=== PATIENT | female | born 1985 | race Two or more races ===

== ENCOUNTER 2019-10-17 16:32 | Inpatient (IN) | payer MEDICAID ==
[~2019-10-17] VITALS: Ht 152.4 cm; Wt 100.0 kg
[2019-10-17] MEDS ORDERED: DERMOPLAST 60ML BOTTLE TOP PRN (17:30)
[2019-10-17] MEDS ORDERED: METHYLERGONOVINE MALEATE 0.2 MG/ML AMP IM ONE (17:30)
[2019-10-17] MEDS ORDERED: PHISODERM TOP SOLN 240ML BTL TOP PRN (17:30)
[2019-10-17] MEDS ORDERED: miSOPROStol 50 MCG per PRE-CUT 1/2 TAB SL PRN (17:30)
[2019-10-17] MEDS ORDERED: WITCH HAZEL-GLYCERIN PAD TOP PRN (17:30)
[2019-10-17] MEDS ORDERED: miSOPROStol 50 MCG per PRE-CUT 1/2 TAB PR PRN (17:30)
[2019-10-17] MEDS ORDERED: ONDANSETRON HCL 4 MG/2 ML VIAL IV PRN ×2 (17:45→23:45)
[2019-10-17] MEDS ORDERED: IBUPROFEN 600 MG TAB PO PRN (17:45)
[2019-10-17] MEDS ORDERED: LACT. RINGERS/OXYTOCIN 20UNITS 500 ML IV ONE (17:48)
[2019-10-17 18:19] LABS: Hematocrit 21.9 % (36.0-46.0); Mean Corpuscular Hemoglobin 20.9 pg (28.0-32.0); Mean Corpuscular Hgb Conc. 27.9 g/dL (32.0-36.0); Platelet Count (auto) 249 10^3/uL (140-450); Red Blood Cells 2.91 10^6/uL (4.0-5.20)
[2019-10-17] MEDS ORDERED: LORazepam 2MG/ML-1ML VIAL ONE (18:20)
[2019-10-17] MEDS ORDERED: InsuLIN REG 1unit/0.01ml Soln (100units/ml) ONE (18:23)
--- NOTE | 2019-10-17 18:23 | NUR ---
RESP NOTE: CODE BLUE. PT BAGGED VIA AMBU AND 100% FIO2. INTUBATED WITH AN 8.0 ETT SECURED ORIGINALLY AT 24 CM AT TEETH BUT WAS RETRACTED TO 20 CM PER XRAY. PT WAS TRANSFERRED AT 1948 TO OR AND OR TEAM HAS ASSUMED CARE.
[2019-10-17 18:42] LABS: Hemoglobin 6.1 g/dL (12.2-16.2); Red Cell Distribution Width 20.5 % (11.8-14.3); White Blood Cell 38.4 10^3/uL (4.4-10.8)
[2019-10-17 18:45] LABS: Alcohol, Urine < 3.0 mg/dL (0-10); Amphetamine Screen, Urine POSITIVE (NEGATIVE); Barbiturate Scree,Urine NEGATIVE (NEGATIVE); Benzodiazephine Screen, Urine NEGATIVE (NEGATIVE); Cannabinoid Screen, Urine POSITIVE (NEGATIVE); Cocaine Screen, Urine NEGATIVE (NEGATIVE); Opiate Scree,Urine NEGATIVE (NEGATIVE); Phencyclidine Screen, Urine NEGATIVE (NEGATIVE)
[2019-10-17 18:46] LABS: Albumin 1.8 g/dL (3.4-5.0); Bilirubin, Total 1.2 mg/dL (0.2-1.0); Calcium 7.1 mg/dL (8.5-10.1); INR 1.03 (0.9-1.15); Potassium 3.6 mmol/L (3.5-5.1); Total Protein 4.8 g/dL (6.4-8.2); Uric Acid 5.1 mg/dL (2.6-6.0)
[2019-10-17 18:49] LABS: BUN/Creatinine Ratio 10.4
[2019-10-17 18:57] LABS: Basophils % (manual) 0 (0.0-2.0); Blast Cells 0; Eosinophils % (manual) 0 (0-7); Metamyelocytes % 0; Promyelocytes % 0; Reactive Lymphocytes 0
[2019-10-17 18:59] LABS: Urine Bacteria NONE SEEN /hpf (None Seen); Urine Blood 1+ /uL (Negative); Urine Hyaline Cast FEW /lpf (0 - 2); Urine Mucus FEW (None Seen); Urine Specific Gravity 1.023 (1.001-1.035); Urine WBC 3 /hpf (0 - 5)
[2019-10-17] MEDS ORDERED: SUCCINYLCHOLINE CHLORIDE 20 MG/ML 10ML VIAL IV ONE (19:21)
[2019-10-17] MEDS ORDERED: ROCURONIUM 10MG/ML 10ML VIAL IV ONE ×2 (19:21→19:23)
[2019-10-17] MEDS ORDERED: fentaNYL CITRATE 100 MCG/2 ML VL ONE (19:22)
[2019-10-17] MEDS ORDERED: HYDROmorphone HCL 2 MG/ML VL ONE ×2 (19:22→21:13)
[2019-10-17] MEDS ORDERED: SODIUM CHLORIDE LOCK 10 ML ONE (19:23)
[2019-10-17] MEDS ORDERED: MIDAZOLAM HCL 1MG/1ML-2 ML VIAL ONE ×2 (19:23→21:10)
[2019-10-17] MEDS ORDERED: fentaNYL CITRATE 5 ML ONE ×2 (19:23→21:10)
[2019-10-17] MEDS ORDERED: KETAMINE HCL 10 ML ONE (19:23)
[2019-10-17] MEDS ORDERED: InsuLIN REG 1unit/0.01ml Soln (100units/ml) IV ONE ×2 (19:40→20:00)
[2019-10-17] MEDS ORDERED: NOREPINEPHRINE 8 MG/250ML KIT 250 ML IV ONE (19:45)
[2019-10-17] MEDS: InsuLIN REG 1unit/0.01ml Soln (100units/ml) ONE ×2 (19:51→19:58)
[2019-10-17] MEDS ORDERED: ceFAZolin 1GM VL ONE (19:52)
[2019-10-17] MEDS ORDERED: oxyTOCIN 10 UNIT/ML 10ML VIAL ONE (20:07)
[2019-10-17 20:14] LABS: Alanine Aminotransferase 230 U/L (13-56); Albumin 1.3 g/dL (3.4-5.0); Anion Gap 24 (5-15); Aspartate Aminotransferase 396 U/L (15-37); BUN/Creatinine Ratio 6.8; Blood Urea Nitrogen 8 mg/dL (7-18); Calcium 6.9 mg/dL (8.5-10.1); Chloride 108 mmol/L (98-107); GFR African American 67 mL/min; GFR Non-African American 55 mL/min; Glucose 328 mg/dL (74-106); Potassium 4.3 mmol/L (3.5-5.1); Sodium 138 mmol/L (136-145)
[2019-10-17 20:16] LABS: Alkaline Phosphatase 269 U/L (45-117); Bilirubin, Total 1.1 mg/dL (0.2-1.0); Total Protein 4.2 g/dL (6.4-8.2)
--- NOTE | 2019-10-17 20:18 | NUR ---
Received call from lab for critical lab, CO2 = 6
[2019-10-17 20:19] LABS: Carbon Dioxide 6 mmol/L (21-32)
--- NOTE | 2019-10-17 20:20 | NUR ---
Critical lab value relayed to Dr Olivera at this time, Dr Olivera verbalizes understanding, no orders received
[2019-10-17] MEDS ORDERED: miSOPROStol 100 mcg TAB ONE (20:22)
[2019-10-17] MEDS ORDERED: SODIUM BICARBONATE 8.4 % INJ 50ML VIAL IV ONE ×5 (20:23→23:45)
[2019-10-17] MEDS: CALCIUM CHLOR(10%) 100MG/ML 10ML SYRINGE IV ONE ×2 (20:25→22:57)
[2019-10-17 20:51] LABS: Hemoglobin 10.3 g/dL (12.2-16.2); Red Blood Cells 4.08 10^6/uL (4.0-5.20)
[2019-10-17 20:52] LABS: Hematocrit 36.9 % (36.0-46.0); Mean Corpuscular Hemoglobin 25.3 pg (28.0-32.0); Mean Corpuscular Volume 90.3 fL (80.0-100.0); Platelet Count (auto) 175 10^3/uL (140-450)
[2019-10-17] MEDS ORDERED: CARBOPROST TROMETHAMINE 250 MCG/1ML VIAL IM ONE (20:52)
[2019-10-17 20:54] LABS: White Blood Cell 53.3 10^3/uL (4.4-10.8)
--- NOTE | 2019-10-17 20:54 | NUR ---
Received call from Morenita in lab with critical WBC of 53.3. She also states that H&H are now 10.3 and 36.9
[2019-10-17 20:55] LABS: Basophils % (manual) 0 (0.0-2.0); Blast Cells 0; Promyelocytes % 0; Reactive Lymphocytes 0
--- NOTE | 2019-10-17 20:55 | NUR ---
Lab values given to OR nurse
[2019-10-17] MEDS ORDERED: KETOROLAC TROMETH 30 MG/ML 1ML VIAL ONE (21:06)
[2019-10-17] MEDS ORDERED: ONDANSETRON HCL 4 MG/2 ML VIAL ONE (21:06)
--- NOTE | 2019-10-17 21:10 | NUR ---
ABG DRAWN, CRITICAL RESULTS REPORTED TO DR. WAITE BY RT YO, AWARE SAMPLE IS MIXED VENOUS. NO NEW RESPIRATORY ORDERS GIVEN AT THIS TIME.
[2019-10-17] MEDS ORDERED: SODIUM BICARBONATE 50ML VIAL 150 ML in SOD CHL 0.45% 1,000 ML IV SCH (21:15)
[2019-10-17] MEDS ORDERED: ALBUMIN 5% 250 ML IV ONE ×2 (21:19→21:30)
[2019-10-17] MEDS ORDERED: EPINEPHrine HCL 1 MG/10 ML SYRG IV ONE (21:20)
[2019-10-17] MEDS ORDERED: OXYTOCIN 10UNIT/ML 1ML VIAL IV ONE (21:22)
--- NOTE | 2019-10-17 22:11 | NUR ---
RECEIVED PATIENT FROM OR ACCOMPANIED BY DR. CLAUDIO,DR. WAITE AND DR. LOMBARDO NOTED THAT BP LOW TO NO READING - ORDER RECEIVED TO GIVE 1 MORE BLOOD Addendum: 10/18/19 at 0818 by Iliana Garner RN ASSESSMENT DONE -REFER INTERVENTIONS
[2019-10-17 22:12] VITALS: BP 108/66
[2019-10-17 22:15] VITALS: BP 104/69
--- NOTE | 2019-10-17 22:30 | NUR ---
HOSPITALIST HERE TO INSERT LINE AWAITING PT PTT RESULTS
[2019-10-17 22:37] VITALS: BP 48/23
[2019-10-17] MEDS ORDERED: VASOPRESSIN 20 UNIT/ML ONE ×2 (22:39→23:11)
[2019-10-17] MEDS: VASOPRESSIN 50 UNITS in D5W 5% 247.5 ML IV SCH (22:45)
[2019-10-17] MEDS ORDERED: SODIUM BICARBONATE 8.4% INJ 50ML SYRINGE ONE (22:54)
[2019-10-17 23:00] VITALS: BP 108/66
[2019-10-17] MEDS: LACT. RINGERS/OXYTOCIN 20UNITS 1,000 ML IV SCH (23:00)
--- NOTE | 2019-10-17 23:00 | NUR ---
HOSPITALIST INFORMED OF PT PTT RESULTS HE SAID HE WILL NOT PUT IN CENTRAL LINE BECAUSE PATIENT IS IN DIC
--- NOTE | 2019-10-17 23:00 | NUR ---
SKIN LEFT EYE ECCHYMOSIS AND SWELLING NOTED - ACCORDING TO DR. CLAUDIO IT WAS THERE ALREADY WHEN PATIENT CAME IN BOTH LOWER LIMBS MOTTLED ALL LIMBS SWOLLEN LOWER MIDDLE ABDOMEN - INCISION SITE DRESSING WITH SOME BLOOD, BUT NO ACTIVE BLEEDING THERE NOTED OR STAFF PLACED ABDOMINAL BINDER VAGINA SWOLLEN - PADS CHANGED - 1/2 SOAKED WITH BLOOD
[2019-10-17 23:01] VITALS: BP 105/48
[2019-10-17 23:06] LABS: INR 1.73 (0.9-1.15)
[2019-10-17 23:10] LABS: Partial Thromboplastin Time > 139.0 sec (23.0-31.2)
[2019-10-17 23:10] LABS: Band Neutrophils % (manual) 12; Lymphocytes % (manual) 11 (10.0-50.0); Monocytes % (manual) 2 (0-12); Myelocytes % 1
[2019-10-17] MEDS ORDERED: DEXTROSE (50%) 50ML SYRG IV PRN (23:15)
[2019-10-17 23:19] LABS: Band Neutrophils % (manual) 5; Eosinophils % (manual) 1 (0-7); Lymphocytes % (manual) 23 (10.0-50.0); Metamyelocytes % 2; Monocytes % (manual) 3 (0-12)
[2019-10-17 23:20] LABS: Myelocytes % 1
[2019-10-17 23:22] LABS: Hematocrit 24.8 % (36.0-46.0)
[2019-10-17 23:24] LABS: Hemoglobin 7.9 g/dL (12.2-16.2)
[2019-10-17] MEDS: SODIUM BICARBONATE 50ML VIAL 150 ML in SOD CHL 0.45% 1,000 ML IV SCH (23:26)
[2019-10-17] MEDS ORDERED: VANCOMYCIN PER PHARMACY 0 MG IV SCH (23:30)
--- NOTE | 2019-10-17 23:30 | NUR ---
GREGORY GARCIA INGA WILL CONTACT DIRECTOR OF BUSINESS CONTINUITY DEPT TO TRY TO GET HOLD OF FAMILY MEMBER
[2019-10-17] MEDS ORDERED: SODIUM CHLORIDE 0.9% 1,000 ML IV SCH (23:31)
[2019-10-17] MEDS ORDERED: ceFAZolin 1GM/50ML 50 ML IV SCH (23:45)
[2019-10-17] MEDS ORDERED: VANCOMYCIN 1GM/250ML 250 ML IV ONE (23:45)
[2019-10-17] MEDS ORDERED: ACETAMINOPHEN IV 1000 MG/100ML (10MG/ML) IV PRN (23:45)
--- NOTE | 2019-10-17 23:45 | NUR ---
TALKED TO HOSPITALIST RE: NO BP START BERTIN AND GIVE 1 MORE AMP OF SODIUM BICARBONATE
[2019-10-17 23:47] LABS: Lactic Acid w/Reflex 13.2 mmol/L (0.4-2.0)
[2019-10-17] MEDS ORDERED: PHENYLEPHRINE IV 250 ML IV ONE (23:48)
[2019-10-18] VITALS (85 sets, daily range): BP systolic 0–177; BP diastolic 37–108
--- NOTE | 2019-10-18 00:05 | NUR ---
This RN calls the following contact numbers to notify family/friend of PT's presence in hospital and to request they come to hospital. Phone recording states that both numbers have been changed, disconnected or are no longer in service: and .
[2019-10-18] MEDS: PHENYLEPHRINE IV 250 ML IV SCH ×8 (00:07→22:45)
[2019-10-18] MEDS: VASOPRESSIN 50 UNITS in D5W 5% 247.5 ML IV SCH ×6 (00:21→08:03)
--- NOTE | 2019-10-18 00:30 | NUR ---
PAGED HOSPITALIST FOR NO BP
[2019-10-18] MEDS ORDERED: VASOPRESSIN 20 UNIT/ML ONE ×6 (00:34→03:25)
[2019-10-18] MEDS: NOREPINEPHRINE 8 MG/250ML KIT 250 ML IV SCH ×3 (00:48→09:59)
--- NOTE | 2019-10-18 00:49 | NUR ---
HOSPITALIST CALLED BACK NOTED OF NO BP AND H&H RESULTS ORDERED 3 UNITS OF PC TO GIVE
--- NOTE | 2019-10-18 01:00 | NUR ---
NO BP READING MAX ON LEVOPHED, BERTIN AND VASOPRESSIN DRIP WILL HUNG BLOOD
[2019-10-18] MEDS: LACT. RINGERS/OXYTOCIN 20UNITS 1,000 ML IV SCH ×4 (01:28→21:28)
[2019-10-18] MEDS: SODIUM BICARBONATE 50ML VIAL 150 ML in SOD CHL 0.45% 1,000 ML IV SCH (02:26)
--- NOTE | 2019-10-18 02:59 | NUR ---
ATTEMPTING TO REACH NEXT OF KIN, NOTIFIED THEY WILL CALL BE BACK AFTER THEY DO SOME RESEARCH
--- NOTE | 2019-10-18 03:24 | NUR ---
CAMERON REY AT BEDSIDE ORDERS RECEIVED
[2019-10-18] MEDS ORDERED: SODIUM BICARBONATE 8.4 % INJ 50ML VIAL IV ONE ×4 (03:27→23:30)
--- NOTE | 2019-10-18 03:35 | NUR ---
[place] [id number] [facility] [id number] IS THE WELFARE OFFICE, THE SUPERVISOR SULFURIC ACID PLANT HAS NO ENCOUNTERS WITH PATIENT AND ARE UNABLE TO LOCATE FAMILY. LDRP AND ICU NOTIFIED
[2019-10-18] MEDS: PIPERACILLIN-TAZOB 3.375GM 100 ML IV SCH ×5 (03:47→23:51)
[2019-10-18 04:52] LABS: Potassium 4.2 mmol/L (3.5-5.1)
[2019-10-18 05:01] LABS: Albumin 1.2 g/dL (3.4-5.0); BUN/Creatinine Ratio 6.8; Bilirubin, Total 1.8 mg/dL (0.2-1.0); Total Protein 2.7 g/dL (6.4-8.2)
[2019-10-18 05:08] LABS: Calcium 5.4 mg/dL (8.5-10.1)
[2019-10-18] MEDS: DEXTROSE (50%) 50ML SYRG IV PRN (05:27)
--- NOTE | 2019-10-18 05:29 | NUR ---
BLOOD SUGAR LOW BLOOD DRAW BLOOD SUGAR = 30 ACCUCHECK = 22 IV D50 GIVEN
--- NOTE | 2019-10-18 05:30 | NUR ---
FOLLOWED UP CBC AND PTPTT RESULTS FROM LAB SHE WILL CHECK ON IT
--- NOTE | 2019-10-18 05:59 | NUR ---
REPEAT BLOOD SUGAR 89
[2019-10-18] MEDS ORDERED: InsuLIN REG 1unit/0.01ml Soln (100units/ml) SC SCH ×2 (06:00)
[2019-10-18] MEDS ORDERED: ACCU-CHEK COMFORT CURVE STRIP VI SCH ×2 (06:00)
--- NOTE | 2019-10-18 06:00 | NUR ---
UNABLE TO GET BP FROM ARM AND LEG HOSPITALIST NOTED
[2019-10-18] MEDS ORDERED: CALCIUM GLUC 4.65meq/50ml D5AE 50 ML IV ONE ×5 (06:15→18:15)
[2019-10-18] MEDS ORDERED: ALBUMIN 5% 250 ML IV ONE (06:30)
[2019-10-18] MEDS: SODIUM BICARBONATE 50ML VIAL 150 ML in D5W 5% 1,000 ML IV SCH ×4 (06:30→23:51)
[2019-10-18] MEDS: EPINEPHrine HCL 250 ML IV SCH ×2 (06:36→20:39)
--- NOTE | 2019-10-18 06:45 | NUR ---
CALLED AND INFORMED DR. CLAUDIO ABOUT THE ABDOMINAL GETTING BIGGER INFORMED OF PARAMETERS HE SAID THEY LEFT 5 PACKS OF PADS INSIDE BECAUSE SHE IS STILL BLEEDING ORDERED TO INFORM DR. YATES
--- NOTE | 2019-10-18 06:50 | NUR ---
CALLED LAB AGAIN TO FOLLOW UP CBC AND PT PTT IT SEEMS THAT ITS NOT DRAWN SHE WILL CONTACT THE SENIOR FRONT END ENGINEER
--- NOTE | 2019-10-18 07:00 | NUR ---
DR. CLAUDIO AT BEDSIDE
--- NOTE | 2019-10-18 07:00 | NUR ---
Binta CLAUDIO AT BEDSIDE AND UPDATED ON PATIENT STATUS. CANDIDO OILFIELD PLANT AND FIELD OPERATOR ALSO AT BEDSIDE. PER MDS ADMINISTER 4PRBC, 2FFP, AND 2 10 PACKS OF PLATELETS. ALL ORDERS NOTED IN CHART. PER CANDIDO PATIENT TO GET MD CRYSTAL WILL PLACE ORDER.
--- NOTE | 2019-10-18 07:00 | NUR ---
REPORT RECEIVED FROM DRAPERY SEAMSTRESS NURSE. PATIENT RESTING IN BED INTUBATED WITH NO SEDATIONS. PATIENT IS NONRESPONSIVE TO PAINFUL STIMULI, NO COUGH OR GAG. RESPIRATIONS EVEN AND UNLABORED. PATIENT CURRENTLY HAS NO BLOOD PRESSURE, PER DRAPERY SEAMSTRESS NURSE PATIENT HAS NOT HAD A BLOOD PRESSURE MOST OF THE NIGHT.BED IN LOW POSITION. WILL CONTINUE TO MONITOR.
[2019-10-18 07:22] LABS: Hematocrit 14.9 % (36.0-46.0); Mean Corpuscular Hemoglobin 29.7 pg (28.0-32.0); Mean Corpuscular Hgb Conc. 30.9 g/dL (32.0-36.0); Mean Corpuscular Volume 96.2 fL (80.0-100.0); Red Blood Cells 1.54 10^6/uL (4.0-5.20); Red Cell Distribution Width 15.5 % (11.8-14.3); White Blood Cell 21.9 10^3/uL (4.4-10.8)
[2019-10-18 07:33] LABS: Hemoglobin 4.6 g/dL (12.2-16.2)
[2019-10-18 07:35] LABS: Platelet Count (auto) 30 10^3/uL (140-450)
[2019-10-18 07:36] LABS: Basophils % (manual) 0 (0.0-2.0); Blast Cells 0; Eosinophils % (manual) 0 (0-7); Promyelocytes % 0; Reactive Lymphocytes 0
--- NOTE | 2019-10-18 07:40 | NUR ---
DR RUSSELL AT BEDSIDE TO PLACE CENTRAL LINE AND ARTERIAL LINE. LINES BOTH PLACED TO RIGHT FEMORAL.
[2019-10-18 07:54] LABS: Band Neutrophils % (manual) 5; Lymphocytes % (manual) 20 (10.0-50.0); Metamyelocytes % 2; Monocytes % (manual) 10 (0-12); Myelocytes % 1
[2019-10-18] MEDS ORDERED: COAGULATION FACTOR VIIA (RECOM 5 MG INJ IV ONE ×2 (08:00→16:00)
[2019-10-18 08:21] LABS: INR 2.73 (0.9-1.15)
[2019-10-18 08:36] LABS: Partial Thromboplastin Time 104.5 sec (23.0-31.2)
[2019-10-18] MEDS ORDERED: VANCOMYCIN 1GM/250ML 250 ML IV ONE (09:00)
[2019-10-18] MEDS: fentaNYL Drip 2500mCg/250mlNS 250 ML IV SCH (09:09)
[2019-10-18] MEDS ORDERED: PANTOPRAZOLE 40 MG/10 ML VIAL INJ IV ONE (09:15)
--- NOTE | 2019-10-18 09:30 | NUR ---
NGT PLACED NGT TO RIGHT NARE AFTER 2 ATTEMPTS. MINIMAL BLEEDING NOTED TO LEFT NARE.
--- NOTE | 2019-10-18 09:30 | NUR ---
Respiratory note: REPEAT ABG DONE, AND REPORTED TO . VENT CHANGES, RR FROM 18 TO 24. REPEAT ABG IN 1HOUR.
--- NOTE | 2019-10-18 09:30 | NUR ---
SPOKE TO DR OLSEN WHO REVIEWED RECENT ABG WITH RESPIRATORY THERAPIST. PER MD ADMINISTER 2 AMPS OF SODIUM BICARBONATE IVP X1.
--- NOTE | 2019-10-18 10:02 | NUR ---
SPOKE TO DR BOYLE AND UPDATED ON PATIENTS CURRENT STATUS, MEDICATIONS, VITALS, AND LAB VALUES. PER MD CONSULT NEPHROLOGY AND PULMONOLOGY. ALL ORDERS NOTED IN CHART.
[2019-10-18] MEDS: ACCU-CHEK COMFORT CURVE STRIP VI SCH ×13 (10:03→23:30)
--- NOTE | 2019-10-18 10:58 | NUR ---
DR BOYLE AT BEDSIDE TO ASSESS PATIENT AND DISCUSS PLAN OF CARE. ALL ORDERS NOTED IN CHART.
--- NOTE | 2019-10-18 11:14 | NUR ---
SPOKE TO IVY CRISOSTOMO (PATIENTS SIGNIFICANT OTHER AND FATHER OF ) [phone]. PER IVY HE WILL FIND PATIENTS MOTHERS NUMBER OR TALK TO PEOPLE THAT CAN GET IN CONTACT WITH HER.
--- NOTE | 2019-10-18 11:30 | NUR ---
SPOKE TO DR YATES AND UPDATED ON PATIENT STATUS. DISCUSSED PLAN OF CARE WITH MD. PER MD WILL TAKE PATIENT TO SURGERY WHEN DR CLAUDIO FEELS PATIENT IS STABLE.
--- NOTE | 2019-10-18 11:33 | NUR ---
assessment Patient is a 33 year old female who is in ICU on a vent. Per DEVAN Rowe patient was brought in by EMS and delivered in ambulance. Per Soledad baby is doing well, but patient had to be intubated and hysterectomy done. I have a ss consult no next of kin. I have been unable to find next of kin. I have messaged people on her possible Facebook page. waiting for a call back now. Addendum: 10/18/19 at 1136 by Sara Nobles Amended: Links added.
--- NOTE | 2019-10-18 11:37 | NUR ---
SPOKE TO DR BURGOS AND REVIEWED RECENT ABG AND PATIENT MEDICAL HX AND REASON FOR ADMISSION. PER MD ADMINISTER 3 AMPS SODIUM BICARBONATE IVP X1 NOW. VENTILATOR CHANGES TV 550 AND INCREASE RATE TO 26. ABG 1 HOUR AFTER CHANGES MADE AND BICARB GIVEN. ALL ORDERS NOTED IN CHART AND INFORMED RESPIRATORY THERAPIST.
[2019-10-18] MEDS: PANTOPRAZOLE 40 MG/10 ML VIAL INJ IV SCH (12:16)
--- NOTE | 2019-10-18 12:30 | NUR ---
Respiratory note: VENT CHANGES MADE PER , RR 26, VT TO 550. REPEAT ABG IN 1 HOUR. TITRATED FIO2 TO 40%
[2019-10-18] MEDS ORDERED: phytonadione 10 MG in SODIUM CHL 0.9% 50 ML IV ONE (12:45)
--- NOTE | 2019-10-18 12:45 | NUR ---
DR CONTRERAS AT BEDSIDE TO ASSESS PATIENT AND DISCUSS PLAN OF CARE. ALL ORDERS NOTED IN CHART.
--- NOTE | 2019-10-18 13:45 | NUR ---
US SENT PER DR BEN LEMUS.
--- NOTE | 2019-10-18 14:10 | NUR ---
Respiratory note: TITRATED FIO2 TO 30%, DEVAN PARRA INFORMED.
--- NOTE | 2019-10-18 14:45 | NUR ---
DR GARCIAS AT BEDSIDE TO ASSESS PATIENT AND DISCUSS PLAN OF CARE. ALL ORDERS NOTED IN CHART.
[2019-10-18] MEDS ORDERED: DESMOPRESSIN INJECTION 20 MCG in SODIUM CHL 0.9% 50 ML IV ONE (15:15)
[2019-10-18 15:24] LABS: Protein, Urine 466.2 mg/dL (0.0-11.9)
[2019-10-18 16:04] LABS: Creatinine, Urine < 5.0 mg/dL (30.0-125.0)
[2019-10-18 16:12] LABS: Hematocrit 15.1 % (36.0-46.0); Mean Corpuscular Hemoglobin 29.8 pg (28.0-32.0); Mean Corpuscular Hgb Conc. 32.4 g/dL (32.0-36.0); Platelet Count (auto) 161 10^3/uL (140-450); Red Blood Cells 1.65 10^6/uL (4.0-5.20); Red Cell Distribution Width 15.3 % (11.8-14.3); White Blood Cell 19.2 10^3/uL (4.4-10.8)
--- NOTE | 2019-10-18 16:12 | NUR ---
SPOKE TO PATIENTS MOTHER VARINDER COLUNGA [phone]. WILL COME IN TO SEE PATIENT. MOTHER WAS UPDATED ON CRITICAL STATE OF PATIENT. MOTHER HAS BEEN APPROVED BY HAT AND CAP PARTS CUTTER HAND TO COME AND SEE PATIENT.
--- NOTE | 2019-10-18 16:15 | NUR ---
WOUND CARE NOTE: Wound care in to see patient per wound care request regarding low Mathieu score of 8 and intubation status, putting patient to high risk for skin breakdown. 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 Patient is resting in ICU bed in Rm. 104. Patient is intubated, sedated and mechanically ventilated. Noted patient's BLE has severely mottled purple skin. She's in multi pressor, edematous with L periorbital bruise. Unable to turn patient as per RN's recommendation as patient is "too unstable" to turn. Per report's patient has no wound other than abdominal incision, ecchymosis to perineum s/p child brith. Wound care will try to do skin assessment when patient is stable to turn. RECOMMENDATION: Nursing to continue with BID/PRN cleaning and application of Barrier cream to sacral, buttocks as preventative, frequent turning and repositioning schedule as condition permits, redistribute pressure points with pillows, elevate heels on pillows,continue monitoring by wound care while patient is intubated. Addendum: 10/18/19 at 1641 by Ileana Goldman RN Amended: Links added.
[2019-10-18 16:25] LABS: Albumin 1.3 g/dL (3.4-5.0); Magnesium 1.7 mg/dL (1.6-2.6); Potassium 4.1 mmol/L (3.5-5.1); Uric Acid 9.8 mg/dL (2.6-6.0)
[2019-10-18 16:32] LABS: Basophils % (manual) 0 (0.0-2.0); Blast Cells 0; Eosinophils % (manual) 0 (0-7); Hemoglobin 4.9 g/dL (12.2-16.2); Promyelocytes % 0; Reactive Lymphocytes 0
--- NOTE | 2019-10-18 16:35 | NUR ---
PAGED DR BOYLE FOR HGB 4.9 AWAITING CALL BACK.
--- NOTE | 2019-10-18 16:39 | NUR ---
SPOKE TO DR BOYLE FOR PATIENTS HGB 4.9, PER MD ADMINISTER 4 UNITS PRBC. ALL ORDERS NOTED IN CHART.
[2019-10-18 16:41] LABS: Bilirubin, Total 1.7 mg/dL (0.2-1.0); Total Protein 2.8 g/dL (6.4-8.2)
[2019-10-18 16:49] LABS: Calcium 5.3 mg/dL (8.5-10.1)
[2019-10-18] MEDS ORDERED: VANCOMYCIN 1GM/250ML 250 ML IV SCH (17:00)
--- NOTE | 2019-10-18 17:08 | NUR ---
PAGED DR CONTRERAS FOR PATIENTS CRITICAL CALCIUM LEVEL 5.3. [address] CONTRERAS AND ORDERED 2 GM CALCIUM GLUCONATE.. ALL ORDERS NOTED IN CHART.
[2019-10-18] MEDS: VASOPRESSIN 100 UNITS in D5W 5% 495 ML IV SCH ×2 (17:14→18:05)
[2019-10-18 17:22] LABS: INR 1.89 (0.9-1.15); Partial Thromboplastin Time 57.8 sec (23.0-31.2)
[2019-10-18 19:11] LABS: Band Neutrophils % (manual) 19; Lymphocytes % (manual) 24 (10.0-50.0); Metamyelocytes % 2; Monocytes % (manual) 5 (0-12); Myelocytes % 2
--- NOTE | 2019-10-18 19:30 | NUR ---
DR CLAUDIO PAGED PAGED DR CLAUDIO PER MD REQUEST TO DISCUSS FIBRINOGEN LEVEL. UPDATED MD REGARDING LEVEL. ORDERS RECEIVED TO TRANSFUSE TWO FFP'S. ORDER PLACED AND BLOOD BANK UPDATED TO THAW UNITS AVAILABLE.
[2019-10-18] MEDS ORDERED: AMINOCAPROIC ACID IV SCH (20:00)
[2019-10-18] MEDS ORDERED: AMINOCAPROIC ACID 5 GM in SODIUM CHL 0.9% 250 ML IV ONE ×2 (20:00→20:15)
--- NOTE | 2019-10-18 20:00 | NUR ---
OPEN ASSUMED CARE OF FEMALE PT ORALLY INTUBATED. PT ON NO SEDATION. NON RESPONSIVE. COUGH AND GAG ABSENT. PUPILS 3 MM ELZA AND SLUGGISHLY REACTIVE. PT DOES NOT BREATH ABOVE THE VENT. SINUS TACH ON BRASS BOBBIN WINDER. PT WITH MULTIPLE PRESSORS INFUSING INTO R. FEM TLC (SEE IV SPREADSHEET). R. FEM ART LINE IN PLACE PROVIDING BP READINGS. GOOD WAVE FORM OBSERVED. PT EDEMATOUS THROUGHOUT. NGT TO L. NARE TO LCS DRAINING SMALL AMOUNT OF STRAW COLORED FLUID. PLACEMENT VERIFIED. PT WITH RIGID DISTENDED ABDOMEN. ABDOMINAL BINDER IN PLACE OVER SURGICAL INCISION TO LOWER ABDOMEN. DRESSING DRY/INTACT. PT ON BLEEDING PRECAUTION. DRESSING NOT TO BE CHANGED. PT RECEIVING BLOOD PRODUCT VIA RAPID INFUSION FOR POST HEMORRHAGE. SEE TRANSFUSION RECORD. PT ON NA+ BICARB GTT 3 AMPS IN D5 AT 200 ML/HR. WHITE TO GRAVITY DRAINING SCANT PINK TINGED URINE. MOTTLING OBSERVED TO ELZA LOWER EXTREMITIES. PEDAL PULSES UNABLE TO BE PALPATED. BED IN LOWEST LOCKED POSITION SIDE RAILS UP X 2. HOB ELEVATED 35 DEGREES. NO INDICATION OF PAIN OBSERVED. UNABLE TO TURN PT AT THIS TIME. WILL RESUME TURN SCHEDULE PT CONDITION PERMITS.
--- NOTE | 2019-10-18 20:05 | NUR ---
FAMILY CONTACT PT'S MOTHER CALLED UNIT FOR UPDATE ON PT CONDITION AND TO INQUIRE ABOUT VISITING PT. UPDATE PROVIDED. ALL QUESTIONS AND CONCERNS ADDRESSED.
[2019-10-18 20:08] LABS: BUN/Creatinine Ratio 5.6
--- NOTE | 2019-10-18 21:15 | NUR ---
DR CLAUDIO PAGED PAGED DR CLAUDIO TO INQUIRE IF PT NEEDS TO BE CONSENTED FOR PLANNED INTRAPERITONEAL PACKING REMOVAL IN AM. NO ORDER FOR PROCEDURE OBSERVED IN CHART. NO CONSENT REQUIRED PER MD.
--- NOTE | 2019-10-18 21:40 | NUR ---
DR OLSEN AT BEDSIDE TO ASSESS PATIENT AND DISCUSS PLAN OF CARE. PER MD CHECK PATIENTS BLOOD SUGAR EVERY HOUR DUE TO LOW BLOOD SUGAR.
--- NOTE | 2019-10-18 21:40 | NUR ---
DR BURGOS CALLED UNIT DR BURGOS CALLED UNIT. MOST RECENT ABG DISCUSSED. ORDER RECEIVED TO OBTAIN ABG AT 2230. ORDER PLACED IN COMPUTER. R.T. NOTIFIED.
[2019-10-18] MEDS: AMINOCAPROIC ACID 5 GM in SODIUM CHL 0.9% 250 ML IV SCH (21:45)
[2019-10-18 22:45] LABS: Hematocrit 26.5 % (36.0-46.0); Hemoglobin 8.8 g/dL (12.2-16.2)
--- NOTE | 2019-10-18 22:45 | NUR ---
FAMILY VISIT PT'S MOTHER TO UNIT FOR VISIT. UPDATED PT'S MOTHER REGARDING PT'S CRITICAL CONDITION AND PLAN TO RETURN TO O.R. IN AM. PT'S MOTHER VERBALIZES UNDERSTANDING.
[2019-10-19] VITALS (78 sets, daily range): BP systolic 38–234; BP diastolic 22–112
[2019-10-19] MEDS: DEXTROSE (50%) 50ML SYRG IV PRN ×5 (00:25→16:05)
--- NOTE | 2019-10-19 00:30 | NUR ---
LOW BLOOD SUGAR PT BLOOD SUGAR 53/ RECHECK 60 MG/DL 1 AMP D 50 GIVEN PER ORDER.
[2019-10-19] MEDS: PHENYLEPHRINE IV 250 ML IV SCH ×6 (01:15→14:22)
[2019-10-19] MEDS: ACCU-CHEK COMFORT CURVE STRIP VI SCH ×16 (01:50→18:07)
[2019-10-19] MEDS: VASOPRESSIN 100 UNITS in D5W 5% 495 ML IV SCH ×3 (02:25→17:02)
[2019-10-19] MEDS: AMINOCAPROIC ACID 5 GM in SODIUM CHL 0.9% 250 ML IV SCH ×4 (02:48→17:25)
[2019-10-19 03:50] LABS: Hematocrit 21.5 % (36.0-46.0); Hemoglobin 7.5 g/dL (12.2-16.2); Mean Corpuscular Hemoglobin 31.7 pg (28.0-32.0); Mean Corpuscular Hgb Conc. 34.7 g/dL (32.0-36.0); Mean Corpuscular Volume 91.5 fL (80.0-100.0); Platelet Count (auto) 43 10^3/uL (140-450); Red Blood Cells 2.35 10^6/uL (4.0-5.20); Red Cell Distribution Width 15.4 % (11.8-14.3); White Blood Cell 14.4 10^3/uL (4.4-10.8)
[2019-10-19 03:52] LABS: Basophils % (manual) 0 (0.0-2.0); Blast Cells 0; Eosinophils % (manual) 0 (0-7); Metamyelocytes % 0; Myelocytes % 0; Promyelocytes % 0; Reactive Lymphocytes 0
[2019-10-19 04:01] LABS: INR 2.16 (0.9-1.15); Partial Thromboplastin Time 48.1 sec (23.0-31.2)
[2019-10-19 04:07] LABS: Anion Gap 28 (5-15); Blood Urea Nitrogen 17 mg/dL (7-18); Carbon Dioxide 15 mmol/L (21-32); Chloride 100 mmol/L (98-107); Glucose 101 mg/dL (74-106); Potassium 3.9 mmol/L (3.5-5.1); Sodium 143 mmol/L (136-145)
[2019-10-19] MEDS: LACT. RINGERS/OXYTOCIN 20UNITS 1,000 ML IV SCH ×3 (04:08→16:05)
--- NOTE | 2019-10-19 04:20 | NUR ---
LOW BLOOD SUGAR PT BLOOD SUGAR 53 1 AMP D 50 GIVEN PER ORDER.
[2019-10-19 04:30] LABS: Alanine Aminotransferase 3032 U/L (13-56); Alkaline Phosphatase 161 U/L (45-117); BUN/Creatinine Ratio 6.1; Bilirubin, Total 2.1 mg/dL (0.2-1.0); GFR African American 25 mL/min; GFR Non-African American 21 mL/min; Total Protein 2.3 g/dL (6.4-8.2)
[2019-10-19 04:36] LABS: Band Neutrophils % (manual) 25; Lymphocytes % (manual) 27 (10.0-50.0); Monocytes % (manual) 15 (0-12)
[2019-10-19 04:43] LABS: Aspartate Aminotransferase 14321 U/L (15-37)
[2019-10-19 04:48] LABS: Phosphorus 8.7 mg/dL (2.5-4.90)
[2019-10-19 05:06] LABS: RPR Non Reactive (Non Reactive)
[2019-10-19 05:20] LABS: Calcium < 5.0 mg/dL (8.5-10.1)
[2019-10-19] MEDS: SODIUM BICARBONATE 50ML VIAL 150 ML in D5W 5% 1,000 ML IV SCH (05:43)
[2019-10-19 06:06] LABS: Rubella Antibodies, IgG 1.31 index (Immune >0.99)
[2019-10-19] MEDS: PIPERACILLIN-TAZOB 3.375GM 100 ML IV SCH ×3 (06:11→18:07)
--- NOTE | 2019-10-19 06:15 | NUR ---
CALL PLACED TO DR CLAUDIO RE: AM LABS UPDATED DR CLAUDIO REGARDING AM LABS. ORDERS RECEIVED TO ORDER 4 PRBC'S TO BE AVAILABLE FOR O.R. ORDER RECEIVED FOR 2 PACKS PLATELETS. ORDERS PLACED IN COMPUTER. BLOOD BANK NOTIFIED.
--- NOTE | 2019-10-19 06:30 | NUR ---
CALL PLACED TO DR CLAUDIO RE: PLATELET AVAILABILITY BLOOD BANK CALLED TO NOTIFY OF PLATELETS NOT BEING AVAILABLE FOR 3 TO [address]. CALL PLACED TO DR CLAUDIO TO NOTIFY. PER MD GIVE PLATELETS WHEN AVAILABLE.
--- NOTE | 2019-10-19 07:35 | NUR ---
ASSESS- PT. LYING IN BED ON VENT SIZE # 7.5 ET, 22 AT THE LIP, AC-26, TV-550, PEEP-5, FIO2-30%. LUNGS COARSE ELZA. INSPIRATORY AND EXPIRATORY. NO GAG/COUGH REFLEX. PUPILS 3 AND SLUGGISH ELZA. NO MOVEMENT OF EXTREMITIES SEEN, ALL EXT. FLACCID. DOES NOT RESPOND TO PAINFUL/TACTILE STIMULI. NO SEDATION. TLC RT. FEMORAL INTACT. A-LINE RT. FEMORAL INTACT WITH GOOD WAVEFORM. NEOSYNEPHRINE GTT. AT 180 MCG., EPI GTT. AT 10 MCG., VASOPRESSIN GTT. AT 0.1UNITS/MIN., AMACAR GTT. AT 54 CC/HR. RADIAL PULSES WEAK, PALPABLE ELZA. UNABLE TO PALPATE DORSALIS PEDAL PULSES OR OBTAIN WITH DOPPLER. MOTTLING ON HANDS ELZA. AND LE ELZA. MOTTLING TO TRUNK OF BODY. COLOR PALE. PT. HAS BRUISE TO LT. EYE. LOWER ABD. INCISION WITH DSG. D/I. ABD. BINDER TO ABD.
--- NOTE | 2019-10-19 07:50 | NUR ---
CALL PLACED TO DR BURGOS CALL PLACED TO DR BURGOS REGARDING THIS AM'S ABG. AWAIT CALL BACK.
[2019-10-19] MEDS ORDERED: CALCIUM CHLOR(10%) 100MG/ML 10ML SYRINGE IV ONE ×2 (08:28→09:02)
[2019-10-19] MEDS ORDERED: FUROSEMIDE INJECTION 100 MG in D5W 5% 100 ML IV SCH (08:30)
[2019-10-19] MEDS ORDERED: SODIUM BICARBONATE 50ML VIAL 150 ML in D5W 5% 1,000 ML IV SCH (08:30)
[2019-10-19] MEDS ORDERED: POTASSIUM CHL 20MEQ/100ML 100 ML IV PRN (08:30)
[2019-10-19] MEDS: CALCIUM ACETATE 667 MG CAP NG SCH ×2 (08:30→13:24)
[2019-10-19] MEDS: ALBUMIN 25% 100 ML IV SCH ×2 (09:06→16:04)
[2019-10-19] MEDS: fentaNYL Drip 2500mCg/250mlNS 250 ML IV SCH (09:09)
[2019-10-19] MEDS ORDERED: HEPARIN 30000 UNITS in SODIUM CHLORIDE 0.9% 1000 ML IV ONE (09:15)
[2019-10-19] MEDS ORDERED: MIDAZOLAM HCL 1MG/1ML-2 ML VIAL ONE (09:21)
[2019-10-19] MEDS ORDERED: fentaNYL CITRATE 100 MCG/2 ML VL ONE (09:21)
[2019-10-19] MEDS ORDERED: fentaNYL CITRATE 5 ML ONE (09:21)
[2019-10-19] MEDS: PANTOPRAZOLE 40 MG/10 ML VIAL INJ IV SCH (09:23)
--- NOTE | 2019-10-19 09:28 | NUR ---
returned call Dr. BURGOS returned call, updated on patient status and reason for call, orders received. Continue care. GAVE ABG RESULTS, ORDER FOR 2 AMPS SODIUM BICARB.
[2019-10-19] MEDS ORDERED: SODIUM BICARBONATE 8.4% INJ 50ML SYRINGE ONE (09:44)
[2019-10-19] MEDS ORDERED: SODIUM BICARBONATE 8.4 % INJ 50ML VIAL IV ONE (09:45)
--- NOTE | 2019-10-19 10:11 | NUR ---
BS-38. GAVE 1 AMP D50 IVP.
--- NOTE | 2019-10-19 10:17 | NUR ---
STARTED 1 PACK OF PLATELETS VIA TLC RT. FEMORAL RAPID INFUSION AT 1200 CC/HR- PT. IS GOING TO OR WITHIN THE HOUR. SIGNED CONSENT PREVIOUSLY.
--- NOTE | 2019-10-19 10:48 | NUR ---
1ST PACK OF PLATELETS COMPLETED. NO ADVERSE REACTION. OCCUPATIONAL THERAPIST HOME BASED'S HERE AND ARE STARTING 2ND PACK OF PLATELETS, PT. IS PREPARING TO GO TO OR NOW.
--- NOTE | 2019-10-19 10:50 | NUR ---
DR. BURGOS Provider/Hospitalist at bedside. GAVE UPDATE ON PT.
--- NOTE | 2019-10-19 11:00 | NUR ---
OR TEAM RN'S AND TECH HERE TO TAKE PT. TO OR WITH DR. CLAUDIO AND DR. SOMERS TO REMOVE PACKING FROM PREVIOUS HYSTERECTOMY. ISHAN RT BAGGING PT. ON NEWS COPY EDITOR AND DRUG BOX WITH PT. 4 PACKS OF PRBC'S ON HOLD AND FFP ON HOLD FOR PT. IF NEEDED. INFORMED SUPERVISOR BOILER REPAIR THAT PT'S. MOM WOULD LIKE DR. CLAUDIO TO CALL HER AFTER SURGERY AND GIVE UPDATE. MOM'S INFO ON FRONT OF PT'S. CHART.
--- NOTE | 2019-10-19 11:30 | NUR ---
CALLED PT'S. MOM BACK AND GAVE UPDATE ON PT.
--- NOTE | 2019-10-19 11:50 | NUR ---
Nutrition Assessment/consult Note please see attached link for complete assessment Est Energy needs ABW 72 [id number] kcals (17-20 kcal/kgABW), Est Protein needs: 72-86 gms/day (1.0-1.2 gm/kgABW r/t severe hypoalb). Will continue to monitor and reassess prn. Addendum: 10/19/19 at [address] Maria [address] Amended: Links added.
--- NOTE | 2019-10-19 12:05 | NUR ---
PT. RETURNED FROM OR WITH RN'S, MAHOGANY AND DR. WHITE, BEING RECOVERED IN RM. 104. ATTACHED TO DECAL DECORATOR, RT ISHAN AT AND CONNECTED PT. TO VENT. TEMP 96.6 RECTALLY. PLACED BEAR HUGGER ON PT. WITH BLANKETS. PT. HAS LG. AMOUNT OF BLOOD ON CHUX UNDER HER, UNSTABLE TO TURN PT. AT THIS TIME. RO DRAIN TO LOWER ABD. INCISION WITH SANGINGOUS DRAINAGE. PUPILS 5 AND FIXED ELZA. NO GAG/COUGH REFLEX. NO RESPONSE TO PAINFUL/TACTILE STIMULI. NO MOVEMENT OF EXTREMITIES SEEN, ALL EXT. FLACCID. MOTTLING TO LOWER EXTREMITIES, TRUNK AREA AND GROIN AREA.
[2019-10-19] MEDS ORDERED: HYDROmorphone HCL 2 MG/ML VL IV PRN (12:45)
[2019-10-19] MEDS ORDERED: ONDANSETRON HCL 4 MG/2 ML VIAL IV PRN (12:45)
[2019-10-19] MEDS ORDERED: ACCU-CHEK COMFORT CURVE STRIP VI ONE (12:45)
[2019-10-19] MEDS ORDERED: MORPHINE SULFATE 4 MG/ML SYR/VIAL IV PRN ×2 (12:45→13:00)
[2019-10-19] MEDS ORDERED: ePHEDrine SULFATE 50 MG/ML AMP IV PRN (12:45)
--- NOTE | 2019-10-19 13:23 | NUR ---
BS-46, REPEATED 42. GAVE 1 AMP D50 IVP.
--- NOTE | 2019-10-19 13:30 | NUR ---
DR. CLAUDIO CALLED. GAVE UPDATE ON PT. NEW ORDERS RECEIVED.
--- NOTE | 2019-10-19 14:22 | NUR ---
CALLED IN NEURO CONSULT TO DR. NORRIS VIA GABRIELA SERRANO WHO TOOK CONSULT INFO.
--- NOTE | 2019-10-19 14:28 | NUR ---
CALLED DR. GARCIAS ON HIS CELL PHONE # GIVEN TO ME PREVIOUSLY BY AND CLARIFIED ORDER FOR AMACAR GTT. AFTER 30 GM. GIVEN TO CONTINUE OR NOT. INFORMED PT. WENT TO OR TODAY AND HAD EBL OF 4 LITERS. RO DRAINING SANGINGOUS BLOOD, EMPTIED 170 CC SINCE BACK FROM OR. DR. GARCIAS SAID TO CONTINUE AMACAR INFUSION AT 1GM./HR. AFTER 30 GM. TOTAL HAD BEEN GIVEN.
--- NOTE | 2019-10-19 14:35 | NUR ---
DR. GARCIAS Provider/Hospitalist at bedside. GAVE UPDATE ON PT. NEW ORDERS RECEIVED.
[2019-10-19 15:12] LABS: Hemoglobin 7.1 g/dL (12.2-16.2)
[2019-10-19] MEDS ORDERED: EPINEPHrine HCL 1 MG/10 ML SYRG IV ONE (15:12)
[2019-10-19 15:13] LABS: Mean Corpuscular Hemoglobin 31.8 pg (28.0-32.0); Mean Corpuscular Hgb Conc. 30.8 g/dL (32.0-36.0); Mean Corpuscular Volume 103.1 fL (80.0-100.0); Platelet Count (auto) 87 10^3/uL (140-450); Red Blood Cells 2.23 10^6/uL (4.0-5.20); Red Cell Distribution Width 18.1 % (11.8-14.3); White Blood Cell 14.2 10^3/uL (4.4-10.8)
[2019-10-19 15:18] LABS: Basophils % (manual) 0 (0.0-2.0); Blast Cells 0; Eosinophils % (manual) 0 (0-7)
[2019-10-19 15:30] LABS: Calcium 6.6 mg/dL (8.5-10.1); Potassium 4.9 mmol/L (3.5-5.1)
[2019-10-19 15:52] LABS: INR 3.7 (0.9-1.15)
[2019-10-19 15:56] LABS: Bilirubin, Total 2.1 mg/dL (0.2-1.0); Partial Thromboplastin Time 125.6 sec (23.0-31.2); Total Protein 2.1 g/dL (6.4-8.2)
[2019-10-19 15:57] LABS: Fibrinogen < 50 mg/dL (177-375)
--- NOTE | 2019-10-19 16:05 | NUR ---
BS-22, REPEATED ACCUCHECK 52 READING. GAVE 1 AMP D50 IVP.
[2019-10-19 16:17] LABS: Albumin 0.9 g/dL (3.4-5.0); BUN/Creatinine Ratio 5.1
--- NOTE | 2019-10-19 16:18 | NUR ---
CALLED DR. GARCIAS ON HIS CELL WITH LABS PREVIOUSLY ORDERED BY HIM, CBC, CMP, PT/PTT, FIBROGEN, LACTATE DEHYDROGENASE. GAVE ALL LAB RESULTS. ORDER RECEIVED TO GIVE PT. BLOOD PRODUCTS-2 FFP, 2 PRBC'S AND 1 CRYO.
--- NOTE | 2019-10-19 16:56 | NUR ---
STARTED 1 UNIT FFP VIA TLC. SIGNED PREVIOUSLY.
[2019-10-19 17:13] LABS: Band Neutrophils % (manual) 36; Lymphocytes % (manual) 16 (10.0-50.0); Monocytes % (manual) 9 (0-12)
--- NOTE | 2019-10-19 17:13 | NUR ---
1 UNIT FFP COMPLETED. NO ADVERSE REACTION.
[2019-10-19 17:14] LABS: Metamyelocytes % 7; Myelocytes % 1
[2019-10-19 17:15] LABS: Reactive Lymphocytes 1
--- NOTE | 2019-10-19 17:34 | NUR ---
STARTED 2ND. UNIT OF FFP VIA TLC.
--- NOTE | 2019-10-19 17:50 | NUR ---
2ND UNIT OF FFP COMPLETED. NO ADVERSE REACTION.
--- NOTE | 2019-10-19 17:56 | NUR ---
PT'S. HR DECREASED 30'S-40'S, SB. GAVE ATROPINE 1MG. IVP. PT. PREVIOUSLY CONNECTED TO CRASH CART MONITOR, PADS IN PLACE ON PT.
--- NOTE | 2019-10-19 18:00 | NUR ---
DR. BOYLE Provider/Hospitalist at bedside. GAVE UPDATE ON PT. CALLED PT'S. MOM BRANDY AND INFORMED OF PT'S. CONDITION. DR. BOYLE SAID MOM IS ON HER WAY AND TO DO EVERYTHING, FULL CODE STATUS AT THIS TIME.
--- NOTE | 2019-10-19 18:17 | NUR ---
UNABLE TO FEEL CAROTID PULSE. CODE BLUE CALLED. SEE CODE SHEET.
--- NOTE | 2019-10-19 18:25 | NUR ---
DR. SADLER AT , UNABLE TO OBTAIN ROSC. PT. PRONOUNCED AT 1825.
--- NOTE | 2019-10-19 18:47 | NUR ---
[facility] CALLED, GAVE INFO. WAITING FOR CALL BACK.
--- NOTE | 2019-10-19 18:50 | NUR ---
Called/paged Dr. BOYLE called re:. Waiting for call back. Continue care.
--- NOTE | 2019-10-19 18:53 | NUR ---
returned call Dr. BOYLE returned call, updated on patient status and reason for call. Continue care.
--- NOTE | 2019-10-19 18:56 | NUR ---
CALLED DR. CLAUDIO, CONNECTED VIA PHONE. INFORMED THAT PT. CODED AND .
--- NOTE | 2019-10-19 19:00 | NUR ---
PT'S. MOM BRANDY HERE. INFORMED OF PT'S. PASSING. WANTED TO SEE DTG., AT BS.
--- NOTE | 2019-10-19 20:00 | NUR ---
MOTHER SIGNED THE FORM. WALKED MOM OUT. SHE WAS BEING PICKED UP BY HER SISTER. WHEN ASKING HER IF SHE WOULD LIKE TO COME IN AND SIT DOWN, SHE STATED "NO, YOU WILL NEVER SEE ME AGAIN". SEMIAUTOMATIC TAPER OPERATOR CALLED BACK. AFTER GIVING HIM THE DETAILS OF THE CASE. HE WANTED TO SPEAK TO THEIR OWN DOCTOR FIRST BEFORE MAKING A DECISION. HE CALLED BACK AND IT IS NOT A CORONERS CASE. THEY FEEL IT WAS COMPLICATIONS FROM THE . CALLED [facility]. THEY HAVE THE MOMS PHONE NUMBER. LAB HAS HER BLOOD FROM TODAY.
--- NOTE | 2019-10-19 21:14 | NUR ---
POST MORTEM CARE BEING DONE
--- NOTE | 2019-10-19 22:49 | NUR ---
BODY HAS LINES REMOVED AND HAS BEEN PLACED IN THE [facility] [place] BAG. SECURITY HERE TO ARMATURE CONNECTOR BODY FOR TRANSPORT TO [facility]
--- NOTE | 2019-10-20 00:46 | NUR ---
[facility]: House Adriane spoke with "Jazz" from [facility]. [facility] has released body d/t no longer pursuing organ donation at this time. Body is released.
--- NOTE | 2019-10-22 09:56 | NUR ---
I SPOKE TO MOTHER OF DECEDENT BRANDY COLUNGA [phone] ABOUT ARRANGEMENTS. SHE WILL BE MAKING A DECISION TOMORROW
--- NOTE | 2019-10-24 12:26 | NUR ---
CALL ANDREA'D FROM SONIA AT [facility]. THEY HAVE BEEN AUTHORIZED TO PRESS BRAKE OPERATOR DECEDENT. RELEASE TO BE FAXED.
--- NOTE | 2019-10-24 15:31 | NUR ---
[facility] HERE TO CLOTH FINISHING RANGE OPERATOR CHIEF DECEDENT. RELEASE REC'D
== END 2019-10-19 23:30 | disposition expired | DRG 541 ==
LOC: LDRP 16:32 → ICU WEST 22:10
PROVIDERS: ADMIT Specialist; ATTEND Hospitalist
PROC: 5A12012 Performance of Cardiac Output, Single, Manual (ICD-10-PCS; 2019-10-17)
PROC: 30233K1 Transfusion of Nonautologous Frozen Plasma into Peripheral Vein, Percutaneous Approach (ICD-10-PCS; 2019-10-17)
PROC: 30233N1 Transfusion of Nonautologous Red Blood Cells into Peripheral Vein, Percutaneous Approach (ICD-10-PCS; 2019-10-17)
PROC: 30233M1 Transfusion of Nonautologous Plasma Cryoprecipitate into Peripheral Vein, Percutaneous Approach (ICD-10-PCS; 2019-10-17)
PROC: 2W43X5Z Packing of Abdominal Wall using Packing Material (ICD-10-PCS; 2019-10-17)
PROC: 5A1945Z Respiratory Ventilation, 24-96 Consecutive Hours (ICD-10-PCS; 2019-10-17)
PROC: 0BH17EZ Insertion of Endotracheal Airway into Trachea, Via Natural or Artificial Opening (ICD-10-PCS; 2019-10-17)
PROC: 10D17ZZ Extraction of Products of Conception, Retained, Via Natural or Artificial Opening (ICD-10-PCS; principal; 2019-10-17 19:45)
PROC: 0UT90ZL Resection of Uterus, Supracervical, Open Approach (ICD-10-PCS; 2019-10-17 19:45)
PROC: 0W9F0ZZ Drainage of Abdominal Wall, Open Approach (ICD-10-PCS; 2019-10-19)
PROC: 0WCG0ZZ Extirpation of Matter from Peritoneal Cavity, Open Approach (ICD-10-PCS; 2019-10-19)
DX: O72.1 Other immediate postpartum hemorrhage (principal); O85 Puerperal sepsis; O24.93 Unspecified diabetes mellitus in the puerperium; E11.10 Type 2 diabetes mellitus with ketoacidosis without coma; R65.21 Severe sepsis with septic shock; O90.4 Postpartum acute kidney failure; O99.53 Diseases of the respiratory system complicating the puerperium; O90.81 Anemia of the puerperium; O99.285 Endocrine, nutritional and metabolic diseases complicating the puerperium; E87.6 Hypokalemia; E83.39 Other disorders of phosphorus metabolism; O14.95 Unspecified pre-eclampsia, complicating the puerperium; O26.63 Liver and biliary tract disorders in the puerperium; O99.42 Diseases of the circulatory system complicating childbirth; O14.25 HELLP syndrome, complicating the puerperium; N17.0 Acute kidney failure with tubular necrosis; I21.3 ST elevation (STEMI) myocardial infarction of unspecified site; O12.15 Gestational proteinuria, complicating the puerperium; O99.13 Other diseases of the blood and blood-forming organs and certain disorders involving the immune mechanism complicating the puerperium; O99.325 Drug use complicating the puerperium; F15.10 Other stimulant abuse, uncomplicated; F12.10 Cannabis abuse, uncomplicated; O99.215 Obesity complicating the puerperium; E66.9 Obesity, unspecified; K72.90 Hepatic failure, unspecified without coma; J96.00 Acute respiratory failure, unspecified whether with hypoxia or hypercapnia; O08.3 Shock following ectopic and molar pregnancy; E83.51 Hypocalcemia; K72.00 Acute and subacute hepatic failure without coma; D69.6 Thrombocytopenia, unspecified; D50.0 Iron deficiency anemia secondary to blood loss (chronic); O9A.23 Injury, poisoning and certain other consequences of external causes complicating the puerperium; S30.1XXA Contusion of abdominal wall, initial encounter; X58.XXXA Exposure to other specified factors, initial encounter; Y93.89 Activity, other specified; Y92.89 Other specified places as the place of occurrence of the external cause; Y99.8 Other external cause status
CPT/HCPCS: 36415; 36430; 36600; 71045; 74018; 80053; 80307; 81001; 82010; 82570; 82805; 82948; 82962; 83605; 83615; 83735; 84100; 84112; 84156; 84300; 84484; 84550; 85007; 85014; 85018; 85027; 85045; 85362; 85379; 85384; 85610; 85730; 86592; 86703; 86762; 86850; 86880; 86900; 86901; 86920; 87070; 87081; 87205; 87340; 92950; 94003; 94640; 96360; 96361; 96365; 96366; 96372; 96374; 96375; C9113; G0378; J0171; J0330; J0610; J0690; J1644; J1815; J1885; J2250; J2405; J2543; J2590; J3430; J7060; P9047